=== PATIENT | male | born 1970 | race Two or more races ===

== ENCOUNTER 2018-07-15 14:35 | Emergency (ER) | payer OTHER ==
[~2018-07-15] VITALS: Ht 185.4 cm; Wt 108.9 kg
[2018-07-15 14:35] VITALS: BP 117/76
[2018-07-15] MEDS ORDERED: IV NS 0.9% 250 ML BAG IV ONE (16:00)
[2018-07-15] MEDS ORDERED: diphenhydrAMINE HCL 50 MG/ML VIAL IV ONE (16:00)
[2018-07-15] MEDS ORDERED: METOCLOPRAMIDE HCL 10 MG/2 ML VIAL IV ONE (16:00)
[2018-07-15] MEDS ORDERED: ACETAMINOPHEN ES 500 MG TABLET PO ONE (16:00)
[2018-07-15] MEDS ORDERED: diphenhydrAMINE HCL 50 MG/ML VIAL ONE (16:13)
[2018-07-15] MEDS ORDERED: METOCLOPRAMIDE HCL 10 MG/2 ML VIAL ONE (16:13)
[2018-07-15] MEDS ORDERED: ACETAMINOPHEN ES 500 MG TABLET ONE (16:13)
--- NOTE | 2018-07-15 16:48 | NUR ---
FRANCO [id number]--- FRIEND
[2018-07-15 17:42] LABS: APPEARANCE,URINE Clear (CLEAR); BILIRUBIN,URINE Negative (NEGATIVE); BLOOD, URINE Trace-intact Ery/uL (NEGATIVE); COLOR,URINE Yellow (YELLOW); KETONES,URINE Negative (NEGATIVE); LEUKOCYTE ESTERASE ,URINE Negative (NEGATIVE); NITRITE, URINE Negative (NEGATIVE); PROTEIN,URINE Negative (NEGATIVE); UGLUCOSE Negative (NEGATIVE); UROBILINOGEN,URINE 0.2 EU/dL (0.2)
[2018-07-15 17:52] LABS: BACTERIA,URINE Rare /HPF (None Seen); RBC,URINE 0-2 /HPF (0-2); SQUAMOUS EPITHELIAL CELL,UR Few /HPF (None Seen); WBC,URINE 0-2 /HPF (0-3)
== END 2018-07-15 18:09 | disposition home or self-care (01) ==
LOC: ER 14:38
DX: R51 Headache (principal); Z87.19 Personal history of other diseases of the digestive system
CPT/HCPCS: 81000-TC; A4606; J1200; J2765; J7050; Z7610